=== PATIENT | female | born 1985 | race African-American/Black ===

== ENCOUNTER 2020-10-30 05:02 | Day surgery (SDC) | payer OTHER ==
[2020-10-26 16:27] VITALS: BMI 26.6
[2020-10-30] MEDS ORDERED: ROCURONIUM BROMIDE 50 MG/5 ML SYRINGE ONE (13:39)
[2020-10-30] MEDS ORDERED: PROPOFOL 20 ML ONE (13:39)
[2020-10-30] MEDS ORDERED: MIDAZOLAM HCL 2 MG/2 ML SINGLE DOSE VIAL ONE (13:39)
[2020-10-30] MEDS ORDERED: oxyCODONE HCL 5 MG TABLET PO PRN (14:40)
[2020-10-30] MEDS ORDERED: ONDANSETRON 4 MG/2 ML VIAL IVPUSH PRN (14:40)
[2020-10-30] MEDS ORDERED: LACTATED RINGERS SOLUTION 1,000 ML IV SCH (14:45)
[2020-10-30 15:30] VITALS: TEMP 97.6
[2020-10-30 16:27] VITALS: BP 110/60; PULSE 68
== END 2020-10-30 17:30 | disposition home or self-care (01) ==
LOC: JASU-SURG 05:02
PROVIDERS: ATTEND Obstetrics & Gynecology
PROC: 0UC98ZZ Extirpation of Matter from Uterus, Via Natural or Artificial Opening Endoscopic (ICD-10-PCS; principal; 2020-10-30 12:30)
DX: Z30.432 Encounter for removal of intrauterine contraceptive device (principal)
CPT/HCPCS: 81025; 88300-TC; 94760

== ENCOUNTER 2021-01-29 12:46 | Emergency (ER) | payer OTHER ==
[2021-01-29 13:03] VITALS: BMI 27.4
[2021-01-29] MEDS ORDERED: ASPIRIN 81 MG CHEWABLE TABLETS PO ONE (13:39)
[2021-01-29] MEDS ORDERED: ASPIRIN 81 MG CHEWABLE TABLETS ONE (14:19)
[2021-01-29 14:34] LABS: BASO % 0.6 % (0-2.0); EOS % 0.8 % (0-4.5); HEMATOCRIT 40.1 % (32.4-45.2); HEMOGLOBIN 13.4 GM/dL (10.7-15.3); LYMPH % 17.1 % (8-40); MCH 27.7 pg (25.7-33.7); MCHC 33.4 g/dl (32.0-36.0); MEAN PLT VOLUME 8.4 fl (7.5-11.1); MONO % 5.5 % (3.8-10.2); PLATELET COUNT 239 10^3/uL (134-434); RBC 4.83 M/mm3 (3.60-5.2); RDW 13.6 % (11.6-15.6)
[2021-01-29 14:40] LABS: INR 1.12 (0.83-1.09); PROTHROMBIN TIME (PATIENT) 12.6 SEC (9.7-13.0)
[2021-01-29 14:43] LABS: ACTIVATED PTT 33.8 SECONDS (25.2-36.5)
[2021-01-29 14:51] LABS: CHLORIDE 105 mmol/L (98-107); SODIUM 138 mmol/L (136-145)
[2021-01-29 14:53] LABS: CALCIUM 9.1 mg/dL (8.5-10.1)
[2021-01-29 14:54] LABS: ALBUMIN 3.7 g/dl (3.4-5.0); ANION GAP 6 MMOL/L (8-16); BLOOD UREA NITROGEN 10.3 mg/dL (7-18); CO2 28 mmol/L (21-32); GLUCOSE,RANDOM 85 mg/dL (74-106); MAGNESIUM 1.8 mg/dL (1.8-2.4)
[2021-01-29 14:57] LABS: CREATININE 0.9 mg/dL (0.55-1.3); SGOT/AST 17 U/L (15-37); SGPT/ALT 24 U/L (13-61)
[2021-01-29 14:58] LABS: BILIRUBIN,TOTAL 0.3 mg/dL (0.2-1)
[2021-01-29 14:59] LABS: TOT PROT 7.7 g/dl (6.4-8.2)
[2021-01-29 15:00] LABS: ALK PHOS 60 U/L (45-117)
[2021-01-29 17:06] LABS: PH,URINE 6.5 (5.0-8.0); URINE APPEARANCE CLEAR; URINE BILIRUBIN NEGATIVE (NEGATIVE); URINE COLOR YELLOW; URINE GLUCOSE (UA) NEGATIVE (NEGATIVE); URINE KETONE NEGATIVE (NEGATIVE); URINE LEUK ESTERASE NEGATIVE (NEGATIVE); URINE NITRITE NEGATIVE (NEGATIVE); URINE PROTEIN NEGATIVE (NEGATIVE); URINE UROBILINOGEN 0.2 mg/dL (0.2-1.0)
[2021-01-29 17:07] LABS: HCG,QUALITATIVE URINE Negative
[2021-01-29 22:49] VITALS: BP 132/76; PULSE 88; TEMP 98.5
== END 2021-01-29 22:50 | disposition home or self-care (01) ==
LOC: JER 12:46
DX: J90 Pleural effusion, not elsewhere classified (principal)
CPT/HCPCS: 36415; 71275-TC; 80053; 81003; 82550; 83735; 84484; 84703; 85025; 85610; 85730; 93005; 93010; 99284-25; C9803; Q9967; U0003; U0005